=== PATIENT | female | born 1995 | race Caucasian/White ===

== ENCOUNTER 2018-03-21 22:47 | Emergency (ER) | payer OTHER ==
[2018-03-22 00:56] LABS: ABSOLUTE BASOPHILS # (AUTO) 0.1 10^3/uL (0.0-0.2); ABSOLUTE EOSINOPHILS # (AUTO) 0.1 10^3/uL (0.0-0.6); ABSOLUTE LYMPHOCYTES (AUTO) 3.5 10^3/uL (0.5-4.7); ABSOLUTE MONOCYTES (AUTO) 0.6 10^3/uL (0.1-1.4); ABSOLUTE NEUT (AUTO) 6.5 10^3/uL (1.7-8.2); BASOPHILS % (AUTO) 0.7 % (0-2); HEMATOCRIT 41.5 % (36.0-47.0); HEMOGLOBIN 14.2 g/dL (12.0-15.5); LYMPHOCYTES % (AUTO) 32.5 % (13-45); MEAN CORPUSCULAR HEMOGLOBIN 31.4 pg (27.0-33.4); MEAN CORPUSCULAR HGB CONC 34.2 g/dL (32.0-36.0); MEAN CORPUSCULAR VOLUME 92 fl (80-97); MONOCYTES % (AUTO) 5.4 % (3-13); PLATELET COUNT 382 10^3/uL (150-450); RED BLOOD COUNT 4.52 10^6/uL (3.72-5.28); RED CELL DISTRIBUTION WIDTH 13.3 % (11.5-14.0); SEGMENTED NEUTROPHILS % (AUTO) 60.4 % (42-78); TOTAL CELLS COUNTED % (AUTO) 100 %; WHITE BLOOD COUNT 10.7 10^3/uL (4.0-10.5)
[2018-03-22 01:09] LABS: ALANINE AMINOTRANSFERASE 39 U/L (9-52); ALBUMIN 5.3 g/dL (3.5-5.0); ALKALINE PHOSPHATASE 53 U/L (38-126); ANION GAP 13 (5-19); ASPARTATE AMINO TRANSFERASE 32 U/L (14-36); BILIRUBIN,DIRECT 0.1 mg/dL (0.0-0.4); BILIRUBIN,TOTAL 0.6 mg/dL (0.2-1.3); BLOOD UREA NITROGEN 8 mg/dL (7-20); CALCIUM 10.3 mg/dL (8.4-10.2); CARBON DIOXIDE 25 mmol/L (22-30); CHLORIDE 100 mmol/L (98-107); GLUCOSE 82 mg/dL (75-110); POTASSIUM 4.2 mmol/L (3.6-5.0); SODIUM 138.3 mmol/L (137-145); TOTAL PROTEIN 8.1 g/dL (6.3-8.2)
[2018-03-22 01:19] LABS: ACETAMINOPHEN < 10 ug/mL (10-30); ALCOHOL < 10 mg/dL (NONE DETECTED); SALICYLATE < 1.0 mg/dL (2.0-20.0)
[2018-03-22 01:37] LABS: APPEARANCE,URINE CLEAR; BILIRUBIN,URINE NEGATIVE (NEGATIVE); COLOR,URINE STRAW; GLUCOSE, URINE NEGATIVE (NEGATIVE); KETONES,URINE 20 mg/dL (NEGATIVE); LEUKOCYTE ESTERASE,URINE NEGATIVE (NEGATIVE); NITRITE,URINE NEGATIVE (NEGATIVE); PROTEIN,URINE NEGATIVE (NEGATIVE); URINE SPECIFIC GRAVITY 1.006; UROBILINOGEN,URINE NEGATIVE mg/dL (<2.0)
[2018-03-22 01:54] LABS: URINE AMPHETAMINES SCREEN NEGATIVE; URINE BARBITURATES SCREEN NEGATIVE; URINE BENZODIAZEPINES SCREEN NEGATIVE; URINE COCAINE SCREEN NEGATIVE; URINE MARIJUANA (THC) SCREEN NEGATIVE; URINE METHADONE SCREEN NEGATIVE; URINE PHENCYCLIDINE SCREEN NEGATIVE
--- NOTE | 2018-03-22 02:29 | ER Document Report ---
ED General - General TRAVEL OUTSIDE OF THE [place] IN LAST 30 DAYS: No <BLAIR HAMM - Last Filed: 03/22/18 02:24> <PAM JACKSON - Last Filed: 03/22/18 13:02> <ESTELLA LAI - Last Filed: 03/22/18 17:07> - General Chief Complaint: Psych Problem Stated Complaint: SUICIDE Time Seen by Provider: 03/22/18 00:01 Primary Care Provider: [facility] [Provider Group] - Follow up as needed - HPI Notes: Patient presents to the emergency department for evaluation of suicidal ideation. Evidently she was in a fight with her via text message. She threatened to slit her wrists. She states that the phone ringing is only thing that stopped her from slitting her wrists in the bathtub. She has actually attempted this in the past. She will not get into details and regards to what she was fighting with her about. She denies any homicidal ideation. She has no psychiatric diagnoses. She is never been on psychiatric medications, never been hospitalized. She does not see a counselor or therapist. (BLAIR HAMM) - Related Data Allergies/Adverse Reactions: No Known Allergies Allergy (Unverified 03/21/18 22:51) Past Medical History - General Information source: Patient - Social History Smoking Status: Never Smoker Chew tobacco use (# tins/day): No Frequency of alcohol use: Social Drug Abuse: Marijuana Occupation: Works at [employer] Family History: Reviewed & Not Pertinent Patient has suicidal ideation: Yes Patient has homicidal ideation: No Renal/ Medical History: Denies: Hx Peritoneal Dialysis <BLAIR HAMM - Last Filed: 03/22/18 02:24> Review of Systems - Review of Systems Constitutional: No symptoms reported EENT: No symptoms reported Cardiovascular: No symptoms reported Respiratory: No symptoms reported Gastrointestinal: No symptoms reported Musculoskeletal: No symptoms reported Skin: No symptoms reported Neurological/Psychological: See HPI <BLAIR HAMM - Last Filed: 03/22/18 02:24> Physical Exam <BLAIR HAMM - Last Filed: 03/22/18 02:24> - Vital signs Vitals: Temp Pulse Resp BP Pulse Ox 98.3 F 67 16 103/58 L 99 03/21/18 23:14 03/21/18 23:14 02/12/19 23:14 03/21/18 23:14 03/21/18 23:14 - Notes Notes: Vital signs reviewed, please refer to chart. Patient is normocephalic, atraumatic. Pupils equal round, reactive to light. Neck is supple without men ingismus. Heart is regular rate and rhythm. Lungs are clear to auscultation bilaterally. Abdomen is soft, nontender, normoactive bowel sounds throughout. Extremities without cyanosis, clubbing, edema. Peripheral pulses are equal. Skin is warm and dry. Patient is awake, alert, neurological exam is nonfocal. Patient is aggressive, not cooperative with examiner. She insists multiple times that she just wants to leave. She will not voluntarily sign paperwork. (BLAIR HAMM) Course - Laboratory Result Diagrams: 03/22/18 00:34 03/22/18 00:34 <BLAIR HAMM - Last Filed: 03/22/18 02:24> - Laboratory Result Diagrams: 03/22/18 00:34 03/22/18 00:34 <PAM JACKSON - Last Filed: 03/22/18 13:02> - Laboratory Result Diagrams: 03/22/18 00:34 03/22/18 00:34 <ESTELLA LAI - Last Filed: 03/22/18 17:07> - Re-evaluation Re-evalutation: 03/22/18 02:28 Patient presents to the emergency department for evaluation of suicidal ideation. She has a plan in place. She has nearly no support. She is very confrontational. Crisis management mobile unit is with her and they are highly concerned that she is a significant threat to herself. I discussed this at length with the patient. I strongly advised her to voluntarily sign herself in for psychiatric evaluation. She refused. Given the level of her throat, lack of support, and the aggression with which she behaved in the emergency departme , I did feel that involuntary commitment was appropriate. The patient had lab work drawn here and is medically cleared. Awaiting psychiatric consultation. (BLAIR HAMM) - Vital Signs Vital signs: Temp Pulse Resp BP Pulse Ox 97.7 F 71 17 104/58 L 99 03/22/18 06:43 03/22/18 06:43 03/22/18 06:43 03/22/18 06:43 03/22/18 06:43 - Laboratory Laboratory results interpreted by me: 03/22/18 03/22/18 03/22/18 00:22 00:34 00:34 WBC 10.7 H Calcium 10.3 H Albumin 5.3 H Urine Ketones 20 H Salicylates < 1.0 L Acetaminophen < 10 L Discharge <BLAIR HAMM Nahed - Last Filed: 03/22/18 02:24> <PAM JACKSON - Last Filed: 03/22/18 13:02> <ESTELLA LAI - Last Filed: 03/22/18 17:07> - Discharge Clinical Impression: Suicidal ideation Condition: Stable Disposition: HOME, SELF-CARE Additional Instructions: You have been evaluated and assessed at [facility] Emergency Department by both the medical and behavioral health teams after presenting for suicidal thoughts and are now deemed appropriate for discharge. While in the ED, you received an initial medical screening, lab work, EKG, medications, direct staff observation, clinical evaluation, physician assessment, and outpatient resources. You were cleared from both services. Mobile crisis resources were provided to you for when these situations arise. You are encouraged to develop positive coping skills through outpatient counseling with Christy Mcknight on a weekly basis with next appointment Tuesday03/27/18. DEPRESSION: Your evaluation reveals that you have mental depression. While symptoms may be vague, they often include disturbance of sleep, fatigue, loss of appetite, and general loss of interest in life. While depression may be a side effect of drugs, or a reaction to a major change in your life, many cases have no known cause. If depression is acute, and related to a major loss in your life, you can expect it to clear completely with time. If you have been depressed a long ti me, are prone to repeated bouts of depression or low mood, or have been thinking of suicide, get help. Depression can be treated with anti-depressant medication and counselling. Long-term depression will often take a few weeks to clear, even with appropriate medication. Follow-up care is important. SUICIDAL IDEATION: Suicidal ideation is a common medical term for thoughts about suicide, which may be as detailed as a formulated plan, without the suicidal act itself. Although most people who undergo suicidal ideation do not commit suicide, some go on to make suicide attempts. The range of suicidal ideation varies greatly from fleeting to detailed planning, role playing, and unsuccessful attempts. While thoughts about suicide are common, most people do not carry out serious actions to commit suicide. Based upon your evaluation and discussion with you, we do not believe you are currently at risk to act upon your thoughts of suicide. You have agreed to return to the Emergency Department, at any time, if you feel inclined to act upon your suicidal thoughts. FOLLOW-UP CARE: If you have been referred to a physician for follow-up care, call the physicians office for an appointment as you were instructed or within the next two days. If you experience worsening or a significant change in your symptoms, notify the physician immediately or return to the Emergency Department at any time for re-evaluation. Referrals: [facility] [Provider Group] - Follow up as needed
--- NOTE | 2018-03-22 07:37 | EKG REPORT ---
SEVERITY:- OTHERWISE NORMAL ECG - SINUS ARRHYTHMIA, RATE [id number] : Confirmed by: Nadja Avila MD 22-Mar-2018 07:36:17
--- NOTE | 2018-03-22 16:19 | ER Document Report ---
Doctor's Note Notes: 03/22/18 16:16 Rounds: Chart reviewed and patient interviewed. Patient is being evaluated for suicidal ideation. She has no history of any mental health disorders or treatment. Says she does not feel suicidal this morning. Labs were all normal. Vital signs normal. Patient appears to be medically stable for transfer or discharge. Vaishali Villarreal MD
[2018-03-22 17:42] VITALS: BP 116/70
--- NOTE | 2018-03-25 08:50 | PSYCHOLOGICAL NOTE ---
Psych Note - Psych Note Date seen by psych provider: 03/22/18 Time seen by psych provider: 07:15 Psych Note: Reason for consult: SI Contact Permissions: [facility]rotter and Dunlevy [phone] Patient is a 23 yo female presenting to the ED with LE for concerns of SI with plan to cut her wrist. Chart review shows no prior MH hx and that patient has been uncooperative in the ED. She is alert and willingly engages in evaluation reporting that she and who is deployed the last 6 months were having an argument via text in which he said some hurtful statements to include that he no longer cares what happens to her. She reports that they have argued often during his deployment with lapse during the holidays. Over the last 2 months, their arguments have increased in frequency and intensity. After the argument, patient called a male friend and relayed that she was going to cut her wrists in the bathtub. Patient relays that she made a similar threat 6 years ago and did see a counselor for one year and reports benefit. She initiated treatment again due to marital discord and difficulty adjusting to the forced separation and has had one session. She would like to continue with this counselor who specializes in marriage counseling and deployment/acculturation stress. Patient denies prior IP psychiatric hospitalization, legal or S/A problems and toxicology screen is negative for all substances. Patient is alert and oriented x 4. Mood is euthymic with bright affect. She is eager to be discharged and return home/delighted to speak with the FRO. Patient denies SI, HI, and AV/H, does not appear to be responding to internal stimuli, and no delusions were noted. Conversational speech was WNL for rate, tone, and prosody. Eye contact was well maintained. Thought processes were linear, organized, and rational. Intellectual abilities were estimated within the average range. Attention/concentration was WNL while, insight, judgment, and impulse control were fair. Diagnosis: V61.10 Z63.0 Relationship Distress with Spouse or Intimate Partner Medication recommendations as per psychiatric provider, Dr. Ferrara are as follows: No medication recommendations at this time Impression/Plan: Patient is psychiatrically clear from acute psychiatric services and recommended to rescind IVC due to risk of harm to self or others aeb Patient denies SI, HI, and AV/H, does not appear to be responding to internal stimuli, and no delusions were noted. Patient is a 23 yo female who expressed plan to cut her wrist after having a fight with her who is deployed and whom she wants home. Patient is future-focused on this goal and has spoken with the FRO Perry Linares today in the ED to initiate his return. She specifies her needs and goals of counseling. Dunlevy is now involved and making plans to bring her home early. Patient identifies [facility] and her room mate as primary supports. Plan is for patient to discharge to home and follow up with her counselor Christy Mcknight today at 1630. Patient was provided with contact information and instruction on [facility] and verbalized she will utilize service if needed. Consulted Dr. Conti in the care and treatment of this patient and ED physician who is in agreement with disposition and recommendation.
== END 2018-03-22 17:55 | disposition home or self-care (01) ==
LOC: ER 22:47
DX: R45.851 Suicidal ideations (principal); Z63.0 Problems in relationship with spouse or partner; F12.10 Cannabis abuse, uncomplicated
CPT/HCPCS: 36415; 80053; 80307; 81001; 84703; 85025; 93005; 93010; 99284